=== PATIENT | male | born 1955 | race Caucasian/White ===

== ENCOUNTER 2018-09-09 07:45 | Day surgery (SDC) | payer OTHER ==
[~2018-09-09] VITALS: Ht 177.8 cm; Wt 124.2 kg
[~2018-09-09 07:45] MED LIST: ALBU90OI; ALBU90OI INH; Aspir 8181 MG; FISH OIL EC 1,1 EAC1; HYDCHL12.5; HYDCHL12.5 PO; Keflex500 MG PO; LOW DOSE ASPIRI81 MG PO; METF500 PO; METF500C; PRAV20; Pravachol20 MG PO; TERB250 PO; Vibramycin100 MG PO
[2018-09-09] MEDS ORDERED: AMLO10 PO (08:07)
== END 2018-09-09 10:55 | disposition home or self-care (01) ==
LOC: ORSCSDS 07:45
PROVIDERS: Internal Medicine Gastroenterology
PROC: 0DBP8ZX Excision of Rectum, Via Natural or Artificial Opening Endoscopic, Diagnostic (ICD-10-PCS; principal; 2018-09-09 09:30)
DX: Z86.010 Personal history of colon polyps (principal); D12.8 Benign neoplasm of rectum; K62.1 Rectal polyp; E78.00 Pure hypercholesterolemia, unspecified; I10 Essential (primary) hypertension; E11.9 Type 2 diabetes mellitus without complications; Z87.891 Personal history of nicotine dependence; E66.01 Morbid (severe) obesity due to excess calories; Z68.41 Body mass index [BMI] 40.0-44.9, adult; Z79.899 Other long term (current) drug therapy
CPT/HCPCS: 82947; 88305; J7120

== ENCOUNTER 2018-12-04 10:41 | Day surgery (SDC) | payer OTHER ==
[~2018-12-04] VITALS: Ht 177.8 cm; Wt 124.8 kg
[~2018-12-04 10:41] MED LIST changes: +AMLO10 PO
--- NOTE | 2018-12-04 11:23 | NUR ---
12/04/18 1123 Marcy Walker CALL LIGHT WITHIN REACH
--- NOTE | 2018-12-04 12:00 | NUR ---
12/04/18 1200 Monique Erickson APC @60 RAZA
== END 2018-12-04 12:25 | disposition home or self-care (01) ==
LOC: ORSCSDS 10:41
PROVIDERS: Internal Medicine Gastroenterology
PROC: 0DBN8ZX Excision of Sigmoid Colon, Via Natural or Artificial Opening Endoscopic, Diagnostic (ICD-10-PCS; principal; 2018-12-04 12:00)
DX: K63.5 Polyp of colon (principal); G47.33 Obstructive sleep apnea (adult) (pediatric); K57.30 Diverticulosis of large intestine without perforation or abscess without bleeding; K64.8 Other hemorrhoids; I10 Essential (primary) hypertension; E11.9 Type 2 diabetes mellitus without complications; E66.01 Morbid (severe) obesity due to excess calories; Z68.39 Body mass index [BMI] 39.0-39.9, adult; Z87.891 Personal history of nicotine dependence; Z79.899 Other long term (current) drug therapy
CPT/HCPCS: 82947; 88305; J2704; J7120

== ENCOUNTER → 2020-08-26 | Outpatient (CLI) | payer OTHER | END | disposition home or self-care (01) | LOC: LAB SHORT 14:29 → PLD 14:29 | DX: L82.1 Other seborrheic keratosis (principal); H02.423 Myogenic ptosis of bilateral eyelids | CPT/HCPCS: 88305 ==

== ENCOUNTER 2021-08-09 11:31 | Day surgery (SDC) | payer OTHER ==
[~2021-08-09] VITALS: Ht 180.3 cm; Wt 131.8 kg
[~2021-08-09 11:31] MED LIST changes: +ASCO500 PO; +FERROUS SULFAT325 M3 PO; +GLUCOPHAGE1000 M1 PO; +LOSA25 PO
--- NOTE | 2021-08-09 12:48 | NUR ---
08/09/21 1248 PASCALE LÓPEZ PT DARNK 8 OZ OF H20 DURING CHECK IN DESPITE BEING TOLD TO "NOT DRINK THAT". PT WAS TOLD THAT HIS PROCEDURE TIME WOULD BE DELAYED 2 HRS DUE TO THE CLEAR LIQUIDS HE CONSUMED PRIOR TO PROCEDURE. OFFICE STAFF OBSERVED THIS AND REPORTED IT TO ADMITTING RN.
== END 2021-08-09 15:34 | disposition home or self-care (01) ==
LOC: ORSCSDS 11:31
PROVIDERS: Surgery
PROC: 0DBH8ZX Excision of Cecum, Via Natural or Artificial Opening Endoscopic, Diagnostic (ICD-10-PCS; principal; 2021-08-09 13:00)
PROC: 0DBL8ZX Excision of Transverse Colon, Via Natural or Artificial Opening Endoscopic, Diagnostic (ICD-10-PCS; principal; 2021-08-09 13:00)
PROC: 0DBC8ZX Excision of Ileocecal Valve, Via Natural or Artificial Opening Endoscopic, Diagnostic (ICD-10-PCS; principal; 2021-08-09 13:00)
DX: Z12.11 Encounter for screening for malignant neoplasm of colon (principal); Z85.038 Personal history of other malignant neoplasm of large intestine; D12.0 Benign neoplasm of cecum; D12.3 Benign neoplasm of transverse colon; K57.30 Diverticulosis of large intestine without perforation or abscess without bleeding; I10 Essential (primary) hypertension; J44.9 Chronic obstructive pulmonary disease, unspecified; G47.33 Obstructive sleep apnea (adult) (pediatric); E11.9 Type 2 diabetes mellitus without complications; E66.01 Morbid (severe) obesity due to excess calories; Z68.41 Body mass index [BMI] 40.0-44.9, adult; Z79.899 Other long term (current) drug therapy
CPT/HCPCS: 82947; 88305; J2704; J7120